=== PATIENT | male | born 1985 | race Caucasian/White ===

== ENCOUNTER 2021-10-26 11:31 | Emergency (ER) | payer BC ==
[2021-10-26] MEDS ORDERED: DUONEB 0.5-3 MG/3 ml Neb IH ONE (12:03)
[2021-10-26] MEDS ORDERED: solu-MEDROL 125 MG, Sterile H2O 10 ml 2 ML IV ONE ×2 (12:03)
[2021-10-26] MEDS ORDERED: solu-MEDROL ONE (12:08)
--- NOTE | 2021-10-26 12:14 | ERPHSYRPT ---
- History of Present Illness Time Seen by Provider: 10/26/21 11:33 Source: patient Exam Limitations: no limitations Patient Subjective Stated Complaint: pt here for pain to right side of chest for a couple days. fever last nigth, slight cough, Triage Nursing Assessment: pt alert, walked in holding chest, but denies any pain now. resp easy, skin w/d/p, no edema noted Physician History: 36 years old male presented in the ER with chief complaint of bilateral lower chest pain with deep breathing, off and on nonproductive cough and subjective feeling of fever chills with generalized weakness fatigue and tiredness. Pat srinivasa is unvaccinated for COVID-19. Pain is intermittent, lasting far 10 to 15 minutes moderate intensity sharp nature and improves on its own. Timing/Duration: yesterday, intermittent, gradual onset, worse Activities at Onset: rest Severity of Dyspnea-Max: mild Severity of Dyspnea-Current: none Possible Cause: unknown cause Modifying Factors: Worsens With: coughing Associated Symptoms: cough, chest pain/discomfort, painful breathing, No productive cough Allergies/Adverse Reactions: No Known Drug Allergies Allergy (Unverified 10/26/21 12:02) Hx Influenza Vaccination/Date Given: No Hx Pneumococcal Vaccination/Date Given: No Immunizations Up to Date: Yes Travel Risk - International Travel Have you traveled outside of the country in past 3 weeks: No - Coronavirus Screening Are you exhibiting any of the following symptoms?: Yes Symptoms: Fever, Cough: New Onset Close contact with a COVID-19 positive Pt in past 14-21 Days: No - Vaccine Status Have you recieved a Covid-19 vaccination: No - Review of Systems Constitutional: No Symptoms Eyes: No Symptoms Ears, Nose, & Throat: No Symptoms Respiratory: Cough, Dyspnea Cardiac: Chest Pain Abdominal/Gastrointestinal: No Symptoms Genitourinary Symptoms: No Symptoms Musculoskeletal: No Symptoms Skin: No Symptoms Neurological: No Symptoms Psychological: No Symptoms Endocrine: No Symptoms Hematologic/Lymphatic: No Symptoms Immunological/Allergic: No Symptoms - Past Medical History Pertinent Past Medical History: No - Past Surgical History Past Surgical History: No - Social History Smoking Status: Former smoker Exposure to second hand smoke: No Drug Use: none Patient Lives Alone: No - Nursing Vital Signs Nursing Vital Signs: Initial Vital Signs Temperature 98.0 F 10/26/21 11:32 Pulse Rate 87 10/26/21 11:32 Respiratory Rate 18 10/26/21 11:32 Blood Pressure 144/82 10/26/21 11:32 O2 Sat by Pulse Oximetry 96 10/26/21 11:32 Pain Scale Pain Intensity 0 - Physical Exam General Appearance: no apparent distress, alert Eye Exam: PERRL/EOMI, eyes nml inspection Ears, Nose, Throat Exam: hearing grossly normal, normal ENT inspection, normal pharynx Neck Exam: normal inspection, non-tender, supple, full range of motion Respiratory Exam: normal breath sounds, lungs clear Cardiovascular/Chest Exam: normal heart sounds, regular rate/rhythm Abdominal/Gastrointestinal Exam: soft, normal bowel sounds, No tenderness Extremity Exam: non-tender, normal range of motion, normal inspection Neurologic Exam: alert, oriented x 3, cooperative Skin Exam: normal color SpO2 Interpretation: normal SpO2: 96 O2 Delivery: Room Air - Course EKG Interpreted by Me: RATE (80), Sinus Rhythm, NORMAL AXIS, NORMAL INTERVALS, Non-specific ST Changes Ordered Tests: Active Orders 24 hr Category Date Time Status Boat Crew Deck Hand STAT Care 10/26/21 12:04 Active EKG-ER Only STAT Care 10/26/21 12:03 Active IV Insertion STAT Care 10/26/21 12:07 Active CHEST WITH CONTRAST [CT] Stat Exams 10/26/21 12:04 Taken CBC W DIFF Stat Lab 10/26/21 11:40 Completed CMP Stat Lab 10/26/21 11:40 Completed Lactic Acid Stat Lab 10/26/21 12:03 Completed MAGNESIUM Stat Lab 10/26/21 11:40 Completed NT PRO BNP Stat Lab 10/26/21 11:40 Completed TROPONIN Q3H Lab 10/26/21 12:15 Completed TROPONIN Q3H Lab 10/26/21 15:15 Ordered TROPONIN Q3H Lab 10/26/21 18:15 Ordered TROPONIN Q3H Lab 10/26/21 21:15 Ordered TROPONIN Q3H Lab 10/27/21 00:15 Ordered Respiratory Therapy Assessment ONCE RT 10/26/21 13:49 Completed Medication Summary Discontinued Medications Generic Name Dose Route Start Last Admin Trade Name Freq PRN Reason Stop Dose Admin Albuterol Sulfate 4 puff 10/26/21 13:47 10/26/21 12:10 Albuterol Common Canister Inhaler IH 10/26/21 13:48 4 puff ONCE ONE Administration Albuterol/Ipratropium 3 ml 10/26/21 12:03 10/26/21 13:50 Ipratropium/Albuterol Sulfate 3 Ml Ampul.Neb IH 10/26/21 12:04 Not Given STAT ONE Methylprednisolone Sodium 0 mg 10/26/21 12:03 10/26/21 12:09 Succinate 125 mg/ Sterile IV 10/26/21 12:04 125 mg Water 2 ml STAT ONE Administration Methylprednisolone Sodium Succinate Confirm 10/26/21 12:08 Methylprednis Sod Succ 125 Mg/2 Ml Vial Administered 10/26/21 12:09 Dose 125 mg .ROUTE .STK-MED ONE Morphine Sulfate 4 mg 10/26/21 12:27 10/26/21 12:44 Morphine Sulfate 4 Mg/Ml Injection IV 10/26/21 12:28 4 mg STAT ONE Administration Morphine Sulfate Confirm 10/26/21 12:42 Morphine Sulfate 4 Mg/Ml Injection Administered 10/26/21 12:43 Dose 4 mg .ROUTE .STK-MED ONE Ondansetron HCl 4 mg 10/26/21 12:27 10/26/21 12:43 Ondansetron Hcl 4 Mg/2 Ml Vial IV 10/26/21 12:28 4 mg STAT ONE Administration Ondansetron HCl Confirm 10/26/21 12:42 Ondansetron Hcl 4 Mg/2 Ml Vial Administered 10/26/21 12:43 Dose 4 mg .ROUTE .STK-MED ONE Lab/Rad Data: Laboratory Result Diagrams 10/26/21 11:40 10/26/21 11:40 Laboratory Results 10/26/21 10/26/21 10/26/21 Range/Units 12:15 12:03 11:40 WBC (4.0-10.5) K/mm3 RBC (4.1-5.6) M/mm3 Hgb (12.5-18.0) gm/dl Hct (42-50) % MCV (78-100) fl MCH (26-32) pg MCHC (32-36) g/dl RDW (11.5-14.0) % Plt Count (150-450) K/mm3 MPV (7.5-11.0) fl Gran % (36.0-66.0) % Eos # (Auto) (0-0.5) Absolute Lymphs (auto) (1.0-4.6) Absolute Monos (auto) (0.0-1.3) Lymphocytes % (24.0-44.0) % Monocytes % (0.0-12.0) % Eosinophils % (0.00-5.0) % Basophils % (0.0-0.4) % Absolute Granulocytes (1.4-6.9) Basophils # (0-0.4) Sodium 137 (137-145) mmol/L Potassium 4.2 (3.5-5.1) mmol/L Chloride 104 (98-107) mmol/L Carbon Dioxide 26 (22-30) mmol/L Anion Gap 11.6 (5-15) MEQ/L BUN 13 (9-20) mg/dL Creatinine 0.97 (0.66-1.25) mg/dL Estimated GFR > 60.0 ML/MIN Glucose 98 (74-106) mg/dL Lactic Acid 0.9 (0.4-2.0) Calcium 9.1 (8.4-10.2) mg/dL Magnesium 1.9 (1.6-2.3) mg/dL Total Bilirubin 0.70 (0.2-1.3) mg/dL AST 28 (17-59) U/L ALT 37 (0-50) U/L Alkaline Phosphatase 61 (38-126) U/L Troponin I < 0.012 (0.000-0.034) ng/mL NT-Pro-B Natriuret Pep 20.3 (0-450) pg/mL Serum Total Protein 6.6 (6.3-8.2) g/dL Albumin 4.1 (3.5-5.0) g/dL 10/26/21 Range/Units 11:40 WBC 5.4 (4.0-10.5) K/mm3 RBC 4.85 (4.1-5.6) M/mm3 Hgb 15.0 (12.5-18.0) gm/dl Hct 45.7 (42-50) % MCV 94.2 (78-100) fl MCH 30.9 (26-32) pg MCHC 32.8 (32-36) g/dl RDW 13.0 (11.5-14.0) % Plt Count 183 (150-450) K/mm3 MPV 10.8 (7.5-11.0) fl Gran % 68.8 H (36.0-66.0) % Eos # (Auto) 0.03 (0-0.5) Absolute Lymphs (auto) 0.97 L (1.0-4.6) Absolute Monos (auto) 0.67 (0.0-1.3) Lymphocytes % 17.9 L (24.0-44.0) % Monocytes % 12.3 H (0.0-12.0) % Eosinophils % 0.6 (0.00-5.0) % Basophils % 0.4 (0.0-0.4) % Absolute Granulocytes 3.74 (1.4-6.9) Basophils # 0.02 (0-0.4) Sodium (137-145) mmol/L Potassium (3.5-5.1) mmol/L Chloride (98-107) mmol/L Carbon Dioxide (22-30) mmol/L Anion Gap (5-15) MEQ/L BUN (9-20) mg/dL Creatinine (0.66-1.25) mg/dL Estimated GFR ML/MIN Glucose (74-106) mg/dL Lactic Acid (0.4-2.0) Calcium (8.4-10.2) mg/dL Magnesium (1.6-2.3) mg/dL Total Bilirubin (0.2-1.3) mg/dL AST (17-59) U/L ALT (0-50) U/L Alkaline Phosphatase (38-126) U/L Troponin I (0.000-0.034) ng/mL NT-Pro-B Natriuret Pep (0-450) pg/mL Serum Total Protein (6.3-8.2) g/dL Albumin (3.5-5.0) g/dL - Progress Progress: improved Air Movement: good Progress Note: 10/26/21 14:20 36-year-old is evaluated for cough with fever and bilateral chest pain with deep breathing. Patient is maintaining oxygen saturation around 96% on room air, not in any distress. Normal white count, grossly unremarkable chemistries. Given symptomatic treatment along with albuterol and Solu-Medrol, on reevaluation feeling much better. I have obtained CTA chest which is negative for pulmonary embolism, did show some atelectasis but no focal pneumonia. I believe patient's is having some viral etiology symptoms, recommended supportive care and will give a short course of steroids along with albuterol. Will obtain outpatient COVID-19. Antibiotics given: No Counseled pt/family regarding: lab results, diagnosis, need for follow-up, rad results - Departure Departure Disposition: Home Clinical Impression: Acute viral syndrome Condition: Stable Critical Care Time: No Referrals: DOCTOR,NO FAMILY [Primary Care Provider] - Follow up/PCP as directed MARCELINO AUGUSTIN MD [ACTIVE STAFF] - Follow Up with PCP/3 days Instructions: Cough, Adult (DC) Additional Instructions: Follow-up with primary care for reevaluation. Return to ER for persistent high- grade fever, difficulty breathing, chest pain etc. Follow contact/droplet precautions until your COVID-19 test results are back. Prescriptions: Albuterol Sulfate [Albuterol Sulfate Hfa] 8.5 gm IH Q6H PRN 7 Days #1 inh PRN Reason: Cough Dexamethasone [Decadron] 6 mg PO DAILY #5 tablet
[2021-10-26 12:23] LABS: Absolute Neutrophil Ct (ANC) 3.74 (1.4-6.9); Basophil (Absolute #) 0.02 (0-0.4); Eosinophil % 0.6 % (0.00-5.0); Eosinophil (Absolute #) 0.03 (0-0.5); Hematocrit 45.7 % (42-50); Lymphocyte (Absolute #) 0.97 (1.0-4.6); Lymphocytes % 17.9 % (24.0-44.0); Mean Cell Volume 94.2 fl (78-100); Mean Corpuscular Hemoglobin 30.9 pg (26-32); Mean Corpuscular Hgb Concent. 32.8 g/dl (32-36); Mean Platelet Volume 10.8 fl (7.5-11.0); Monocyte (Absolute #) 0.67 (0.0-1.3); Monocytes % 12.3 % (0.0-12.0); Neutrophil % 68.8 % (36.0-66.0); Platelet Count 183 K/mm3 (150-450); Red Blood Count 4.85 M/mm3 (4.1-5.6); White Blood Count 5.4 K/mm3 (4.0-10.5)
[2021-10-26] MEDS ORDERED: MORPHINE SULFATE 4 MG INJ IV ONE (12:27)
[2021-10-26] MEDS ORDERED: Zofran 4 MG/2 ML VIAL IV ONE (12:27)
[2021-10-26] MEDS ORDERED: MORPHINE SULFATE 4 MG INJ ONE (12:42)
[2021-10-26] MEDS ORDERED: Zofran 4 MG/2 ML VIAL ONE (12:42)
[2021-10-26 12:43] LABS: ALBUMIN 4.1 g/dL (3.5-5.0); ALKALINE PHOSPHATASE 61 U/L (38-126); ANION GAP 11.6 MEQ/L (5-15); BLOOD UREA NITROGEN 13 mg/dL (9-20); CHLORIDE 104 mmol/L (98-107); Calcium 9.1 mg/dL (8.4-10.2); Carbon Dioxide 26 mmol/L (22-30); Creatinine 1 0.97 mg/dL (0.66-1.25); EST GLOMERULAR FILTRATION RATE > 60.0 ML/MIN; Glucose 98 mg/dL (74-106); MAGNESIUM 1.9 mg/dL (1.6-2.3); NT PRO BNP 20.3 pg/mL (0-450); Potassium 4.2 mmol/L (3.5-5.1); SGOT/AST 28 U/L (17-59); SGPT/ALT 37 U/L (0-50); SODIUM 137 mmol/L (137-145); Total Protein 6.6 g/dL (6.3-8.2)
[2021-10-26] MEDS ORDERED: VENTOLIN COMMON CANISTER IH ONE (13:47)
[2021-10-26 14:30] VITALS: BP 123/68; PULSE 76; O2SAT 95
--- NOTE | 2021-10-26 18:10 | XRAY ---
Indication: Chest pain/pressure Multiple contiguous axial images obtained through the chest using 90 cc Isovue-370 contrast and PE protocol. Comparison: None There is suboptimal opacification of the pulmonary arteries limiting evaluation for pulmonary embolus. No obvious pulmonary embolus. Heart not enlarged. Aorta is normal in course and caliber. No pathologic mediastinal/hilar lymphadenopathy. Lungs demonstrate minimal bibasilar subsegmental atelectasis/scarring. No suspicious pulmonary mass, infiltrate, effusion, or pneumothorax. Bony thorax intact. Limited upper abdomen unremarkable. Impression: 1. Pulmonary embolus evaluation limited by suboptimal contrast opacification. No obvious pulmonary embolus. 2. Minimal bibasilar subsegmental atelectasis/scarring. 3. No acute cardiopulmonary abnormalities. Comment: Preliminary interpretation made by C. No critical discrepancy.
== END 2021-10-26 14:38 | disposition home or self-care (01) ==
LOC: ED 11:31
DX: B34.9 Viral infection, unspecified (principal); R07.9 Chest pain, unspecified; R05.9 Cough, unspecified; R50.9 Fever, unspecified; R53.1 Weakness; R53.83 Other fatigue; Z79.52 Long term (current) use of systemic steroids
CPT/HCPCS: 36000; 36415; 71260; 80053; 83605; 83735; 83880; 84484; 85025; 93005; 93041; 94640; 96374; 96375; 99284; U0003; J2270; J2405; J2930